=== PATIENT | female | born 1940 | race Caucasian/White ===

== ENCOUNTER 2017-03-04 18:48 | Emergency (ER) | payer MEDICARE, BC ==
[~2017-03-04] VITALS: Ht 152.4 cm; Wt 86.9 kg
--- NOTE | 2017-03-04 19:47 | Emergency Room Report ---
History of Present Illness Time Seen by 1913 Presenting Problem in Triage Pt arrived:Walked Presenting Problem:C/O BILATERAL LEG EDEMA FOR 2-3 WEEKS AND TODAY AFTER BATHING DEVELOPED AREA TO LEFT LOWER LEG WITH UNCONTROLLABLE BLEEDING FROM ? VARICOSE VEIN Onset of symptoms date/time:/ or onset unknown for:MEDICAL HX UNKNOWN Treatment Prior to Arrival: [employer] Provided by: Sepsis Risk Assessment: Temp: 97.5 B/P: 191/88 MAP: 122 Pulse: 86 Resp: 20 Recent fever? N Clinical Suspician of Infection? N Mental Status: 1 - Regular (Normal Baseline) Sepsis Risk:Low Sepsis Risk Have you (or family members/close friends) recently traveled outside the [place]? N If Yes, where/when: Have you had exposure to infectious disease within the past month? N TB? Other? Specify: She complains of bilateral lower extremity edema for the past 2-3 weeks which is new for her and then when she was standing today she noted blood started squirting from her LEFT lower extremity. Currently wrapped in a bandage. She denies any shortness of breath fever chills she denies any chest pain abdominal pain she states her legs simply gotten swollen gradually progressively worse over the past 3 weeks that she now has some achiness moderate in severity in both lower legs, patient. She states her bleeding is coming from up in all site in the LEFT lower extremity ALLERGIES Coded Allergies: No Known Allergies (03/04/17) Home Medications Reported Medications Simvastatin 20 MG PO DAILY #30 Lisinopril 20 MG PO DAILY #30 Verapamil Hcl (Verapamil ER) 360 MG PO DAILY #45 Atorvastatin Calcium 20 MG PO BEDTIME #30 ([facility], [place]) History Medical History General CAD? No Angina: No [place]: No Hypertension? Yes Hyperlipidemia? No CHF? No DVT? No PE? No COPD? No Asthma? No Anemia? No GERD? No Gastric ulcers? No GI Bleed? No Hernia? No Thyroid Problems? Yes Hypothyroidism? Yes CVA? No Seizures? No Diabetes? No Renal Insuffiency? No End Stage Renal Disease? No UTI? No Stones? No BPH? No GB Disease: No Nephritic Syndrome? No Asplenia? No Hepatitis? No Sickle Cell Disease? No Arthritis? Yes Migraines? No Cataracts? No Glaucoma? No MRSA? No HIV? No TB? No Anxiety? No Depression? No Cancer? No Immunization Hx DT/Tetanus 5-10 Years Ago Surgical Hx Previous Surgery?Y SARAH BLADDER TUCK Family History Family Hx Diabetes No CAD No Hypertension Yes Hyperlipidemia No Cancer No TB No Social History Smoking Hx Smoker: Never Smoker Tobacco: No Alcohol Alcohol: No ([place] Byrd MD) Review of Systems All Other Systems Reviewed and Negative ([place] Byrd MD) Physical Exam Vital Signs Vital Signs Date Time Temp Pulse Resp B/P Pulse O2 O2 Flow FiO2 Ox Delivery Rate 03/04 1912 97.5 86 20 191/88 97 General Appearance: Nontoxic Head: Normocephalic, without obvious abnormality, atraumatic. Eyes: conjunctiva/corneas clear ENT: Mucous membranes moist. Neck: No jugular venous distention. Cardiac: regular rate and rhythm Lungs: Clear to auscultation bilaterally Abdomen: Nontender, Nondistended, positive bowel sounds, no rebound : No CVA tenderness Extremities: +2 Bilateral lower extremity edema Bilateral calf tenderness On the LEFT lower extremity there is a pinhole bleeding site on a varicose vein. Musculoskeletal: No chest wall tenderness Skin: No rashes or lesions to exposed skin. Neurologic: Alert. No gross focal deficits Psychiatric: Normal affect ([place] Byrd MD) General Appearance normal appearance Respiratory Status No: respiratory distress. Cardiovascular normal exam Neurologic alert ([place] Byrd MD) Medical Decision Making LABS/Meds/Orders Pt receiving controlled substance in ED? No Results/Orders Laboratory Tests 03/04/171948: Sodium 129 L, Potassium 4.0, Chloride 100, Carbon Dioxide 27, BUN 29 H, Creatinine 1.1 H, Estimated Creat Clear 62, Estimated GFR (MDRD) 49 L, Glucose 88, Calcium 9.4, Total Bilirubin 0.5, AST 33, ALT 36, Alkaline Phosphatase 92, Troponin I < 0.02, B-Natriuretic Peptide 107 H, Total Protein 7.5, Albumin 3.6, Globulin 3.9 H, Albumin/Globulin Ratio 0.9 L, PT 10.7, INR 0.99, APTT 25.3, D- Dimer 912 *H, WBC 9.6, RBC 4.56, Hgb 14.2, Hct 42.2, MCV 92.5, RDW 13.9, Plt Count 290, MPV 7.8, Gran % 38.7, Gran # 3.7, Lymphocytes % 46.9, Monocytes % 6.6 , Eosinophils % 6.7, Basophils % 1.0, Lymphocytes # 4.5, Monocytes # 0.6, Eosinophils # 0.7 H, Basophils # 0.1, PUBS MCHC 33.5, MCH 31.0 Current Medication Orders Sig/Chilo Start time Last Medication Dose Route Stop Time Status Admin Diphtheria/Pertussis/ 0.5 ML ONCE ONE 03/04 2015 DC 03/04 Tetanus Vacc IM 03/04 Furosemide 20 MG ONCE ONE 03/04 2000 DC 03/04 IV 03/04 Tetanus/Diphtheria 0.5 ML ONCE ONE 03/04 2000 CAN Toxoids Adsorbed IM 03/04 2001 Diphtheria/Pertussis/ 0 .STK-MED ONE 03/04 1955 DC Tetanus Vacc IM Furosemide 0 .STK-MED ONE 03/04 1954 DC .ROUTE Lidocaine/Epinephrine 0 .STK-MED ONE 03/04 1934 DC .ROUTE Orders Procedure Date/time Status TROPONIN I 03/04 1950 Complete PARTIAL THROMBOPLASTIN TIME 03/04 1950 Complete PROTHROMBIN TIME 03/04 1950 Complete D-DIMER 03/04 1950 Complete CBC WITH AUTO DIFF 03/04 1950 Complete CHEM 12 PROFILE 03/04 1950 Complete BRAIN NATRIURETIC PEPTIDE 03/04 1950 Complete Procedures Laceration/Wound Repair Laceration/Wound Repair Risks/benefits discussed with pt/guardian? Yes Tetanus status not up to date Wound Location lower leg Wound Length (cm) 0.1 Wound's Depth, Shape superficial Wound Explored clean Risk of retained FB explained to pt/guardian? No Wound Prep Betadine Anesthesia Lidocaine w/Epi Volume Anesthetic (ccs) 1 Wound Debrided none Wound Repaired With sutures Suture Size/Type 4:0 Layer Closure No Total Number Sutures 1 (figure 8 suture) Sterile Dressing Applied Yes Splint Applied No Sling Applied No ([place] Byrd MD) Departure Departure Time of Disposition 1945 Condition STABLE ED Critical Care Critical Care No ([place] Byrd MD) Departure Disposition DC Home or Self Care(routine) Clinical Impression Primary Impression: Bilateral lower extremity edema Secondary Impressions: Elevated d-dimer, Renal insufficiency, Varicose vein of leg Referrals Eloise Montemayor MD (Family) discussed with dr navarrete Patient Instructions DI for Peripheral Edema -- Bilateral Additional Instructions call pcp in am and will do u/s of lower ext in am Discharge Counseling Counseled pt/family regarding diagnosis, test results, medications/RX, follow up needs (Linda Murphy MD) at 1955 at 2105
[2017-03-04 19:59] LABS: HEMOGLOBIN 14.2 g/dL (12.2-16.2); LYMPH # 4.5 K/mm3 (0.7-4.5); LYMPH % 46.9 % (10-50.0)
[2017-03-04 20:12] LABS: BUN 29 mg/dL (7-18)
[2017-03-04 20:20] LABS: GFR (ESTIMATED) 49 ML/MIN (59-)
[2017-03-04 21:26] VITALS: BP 191/88
--- OUTSIDE RECORDS SUMMARY | 2017-03-16 16:45 | External Medical Summary Rpt ---
Author Author [employer], [employer] Address Unknown Phone Unavailable Results Fibrin D-dimer FEU [Mass/volume] in Platelet poor plasma Observa Value Referen Units Interpr Notes Date tion ce etation Range IS PATIENT ON ANTICOAGULANTS? N Fibrin 0 - 400 ng/mL High Sep 29 D-dimer alert NOTIFICAT 2017 7:49 FEU ION PM [Mass/vol RESULT ume] in The Platelet D-Dimer poor values plasma are presented in units of mass(ng/m L) ofD-Dimer units(DDU ).This test has been FDA approved as an aid in the assessmen tand evaluatio n of suspected DIC, and thromboem bolic eventsinc luding PE and DVT. However, it does not have approvalf or cut-off values for the exclusion of these condition s. INR in Blood by Coagulation assay Observa Value Referen Units Interpr Notes Date tion ce etation Range IS PATIENT ON ANTICOAGULANTS? N INR in 0.9 - 1.1 No Normal INDICATIO Sep 29 Blood by informati N 2016 7:49 Coagulati on in PM on assay source INR data RANGETHER APY FOR DVT, PE, ATRIAL FIB; 2.0 - 3.0PROPHY LAXIS FOR VTETHERAP Y FOR MECHANICA L HEART 2.5 - 3.5VALVE; PREVENTIO N OF SYSTEMICE MBOLISM SECONDARY TO AMI Prothromb 9.4 - SECONDS Normal No Sep 29 in time 11.8 informati 2017 7:49 (PT) in on in PM Platelet source poor data plasma by Coagulati on assay Activated partial thrombplastin time (aPTT) in Platelet poor plasma by Coagulation assay Observa Value Referen Units Interpr Notes Date tion ce etation Range IS PATIENT ON ANTICOAGULANTS? N Activated 23.6 - SECONDS Normal No Sep 29 partial 34.0 informati 2017 7:49 thrombpla on in PM stin time source (aPTT) data in Platelet poor plasma by Coagulati on assay CBC W Auto Differential panel in Blood Observa Value Referen Units Interpr Notes Date tion ce etation Range Basophils 0 - 0.2 K/MM3 Normal No Sep 29 informati 2017 7:49 [#/volume on in PM ] in source Blood by data Automated count Basophils 0.1 - 2.0 % Normal No Sep 29 /100 informati 2017 7:49 leukocyte on in PM s in source Blood by data Automated count Eosinophi 0.0 - 0.4 K/mm3 High No Sep 29 ls informati 2016 7:49 [#/volume on in PM ] in source Blood by data Automated count Eosinophi 0.1 - % Normal No Sep 29 ls/100 12.0 informati 2017 7:49 leukocyte on in PM s in source Blood by data Automated count Granulocy 1.8 - 7.8 K/mm3 Normal No Sep 29 calvin informati 2016 7:49 [#/volume on in PM ] in source Blood by data Automated count Granulocy 37.0 - % Normal No Sep 29 calvin/100 80.0 informati 2016 7:49 leukocyte on in PM s in source Blood by data Automated count Hematocri 37.0 - % Normal No Sep 29 t [Volume 47.0 informati 2017 7:49 on in PM Fraction] source of Blood data Hemoglobi 12.2 - g/dL Normal No Sep 29 n 16.2 informati 2017 7:49 [Mass/vol on in PM ume] in source Blood data Lymphocyt 0.7 - 4.5 K/mm3 Normal No Sep 29 es informati 2017 7:49 [#/volume on in PM ] in source Unspecifi data ed specimen by Automated count Lymphocyt 10 - 50.0 % Normal No Sep 29 es informati 2017 7:49 [#/volume on in PM ] in source Unspecifi data ed specimen by Automated count Erythrocy 27 - 31.2 pg Normal No Sep 29 te mean informati 2017 7:49 corpuscul on in PM ar source hemoglobi data n [Entitic mass] Erythrocy 31.8 - g/dl Normal No Sep 29 te mean 35.4 informati 2017 7:49 corpuscul on in PM ar source hemoglobi data n concentra tion [Mass/vol ume] by Automated count Erythrocy 82.2 - fl Normal No Sep 29 te mean 97.8 informati 2016 7:49 corpuscul on in PM ar volume source [Entitic data volume] by Automated count Monocytes 0.1 - 1.0 K/mm3 Normal No Sep 29 informati 2016 7:49 [#/volume on in PM ] in source Blood by data Automated count Monocytes 1.7 - 9.3 % Normal No Sep 29 /100 informati 2016 7:49 leukocyte on in PM s in source Blood by data Automated count Platelet 7.4 - fl Normal No Sep 29 mean 10.4 informati 2016 7:49 volume on in PM [Entitic source volume] data in Blood by Automated count Platelets 142 - 424 K/mm3 Normal No Sep 29 informati 2016 7:49 [#/volume on in PM ] in source Blood data Erythrocy 4.2 - 5.4 M/mm3 Normal No Sep 29 calvin informati 2016 7:49 [#/volume on in PM ] in source Amniotic data fluid Erythrocy 11.5 - % Normal No Sep 29 te 17.5 informati 2016 7:49 distribut on in PM ion width source [Entitic data volume] by Automated count Leukocyte 4.8 - K/MM3 Normal No Sep 29 s 10.8 informati 2016 7:49 [#/volume on in PM ] in source Blood data
--- OUTSIDE RECORDS SUMMARY | 2017-03-16 16:45 | External Medical Summary Rpt ---
Author Author , MARIA TERESA KERNS Address Unknown Phone [email or web address] Immunization Name Date Rout CVX Reac Dose Comm Prov Is Faci e tion ent ider Refu lity Give sed n Infl 10-0 Intr 135 0.5 Hist D049 No D049 uenz 6-20 amus mL oric 01 01 a, 17 cula al High r Info rmat Dose ion - Sour ce Unsp ecif ied
--- OUTSIDE RECORDS SUMMARY | 2017-03-16 16:45 | External Medical Summary Rpt | CCD ---
Author Author [employer] Address Unknown Phone Unavailable Purpose Continuity of Care Document - through 2016
--- OUTSIDE RECORDS SUMMARY | 2017-03-16 16:45 | External Medical Summary Rpt ---
Author Author , MARIA TERESA KERNS Address Unknown Phone [email or web address] Immunization Name Date Rout CVX Reac Dose Comm Prov Is Faci e tion ent ider Refu lity Give sed n Infl 10-0 Intr 135 0.5 Hist D049 No D049 uenz 6-20 amus mL oric 01 01 a, 17 cula al High r Info rmat Dose ion - Sour ce Unsp ecif ied
--- OUTSIDE RECORDS SUMMARY | 2017-03-16 16:45 | External Medical Summary Rpt ---
Author Author MARIA TERESA Address Unknown Phone maria Purpose Continuity of Care Document - 03-04-2017 through 2016
== END 2017-03-04 21:29 | disposition home or self-care (01) ==
LOC: ER 18:48
PROVIDERS: Emergency Medicine
PROC: 0HQLXZZ Repair Left Lower Leg Skin, External Approach (ICD-10-PCS; principal; 2017-03-04)
DX: I83.892 Varicose veins of left lower extremity with other complications (principal); N28.9 Disorder of kidney and ureter, unspecified; I10 Essential (primary) hypertension; E03.9 Hypothyroidism, unspecified; Z23 Encounter for immunization; R06.02 Shortness of breath; Z51.81 Encounter for therapeutic drug level monitoring

== ENCOUNTER → 2017-03-05 | Outpatient (CLI) | payer MEDICARE, BC ==
--- NOTE | 2017-03-05 16:16 | CARDIOVASCULAR REPORT ---
"Venous Exam IMPRESSIONS No evidence of deep or superficial vein thrombosis involving the right lower extremity and left lower extremity History: Bilateral lower extremity pain. Swelling of both lower extremities. Varicose veins of the left lower extremity. Risk factors: Hypertension. Obese. Patient states she's noticed swelling in both legs for the last 3 weeks. She received a Lovenox injection in the emergency department 03/04/17. She denies any trauma. Complete lower extremity venous duplex evaluation. Doppler flow study including spectral analysis, color and petersen scale imaging. Location: Vascular laboratory. Patient status: Outpatient. Tables: Venous flow and imaging: + +-------+ + |Location |Overall|Flow properties | + +-------+ + |Right common femoral |Patent |Normal phasicity; spontaneous; | | | |normal augmentation; compressible| + +-------+ + |Right saphenofemoral junction|Patent |Compressible | + +-------+ + |Right profunda femoral |Patent |Compressible | + +-------+ + |Right femoral |Patent |Normal phasicity; spontaneous; | | | |normal augmentation; | | | |compressible; no reflux | + +-------+ + |Right greater saphenous |Patent |Normal phasicity; spontaneous; | | | |normal augmentation; compressible| + +-------+ + |Right popliteal |Patent |Normal phasicity; spontaneous; | | | |normal augmentation; compressible| + +-------+ + |Right posterior tibial |Patent |Compressible | + +-------+ + |Right peroneal |Patent |Compressible | + +-------+ + |Right gastrocnemius |Patent |Compressible | + +-------+ + |Right soleal |Patent |Compressible | + +-------+ + |Left common femoral |Patent |Normal phasicity; spontaneous; | | | |normal augmentation; compressible| + +-------+ + |Left saphenofemoral junction |Patent |Compressible | + +-------+ + |Left profunda femoral |Patent |Compressible | + +-------+ + |Left femoral |Patent |Normal phasicity; spontaneous; | | | |normal augmentation; compressible| + +-------+ + |Left greater saphenous |Patent |Normal phasicity; spontaneous; | | | |normal augmentation; compressible| + +-------+ + |Left popliteal |Patent |Normal phasicity; spontaneous; | | | |normal augmentation; compressible| + +-------+ + |Left posterior tibial |Patent |Compressible | + +-------+ + |Left peroneal |Patent |Compressible | + +-------+ + |Left gastrocnemius |Patent |Compressible | + +-------+ + |Left soleal |Patent |Compressible | + +-------+ + (Report amended ) Electronically signed by: Giacomo Peoples [id number]"
== END ==
LOC: RT 15:16
DX: R22.42 Localized swelling, mass and lump, left lower limb (principal); R79.1 Abnormal coagulation profile

== ENCOUNTER → 2017-05-13 | Outpatient (CLI) | payer MEDICARE, BC ==
[~2017-05-13] MED LIST: ATORVASTATIN CA20 M1 PO; LISINOPRIL20 MG PO; SIMVASTATIN20 MG PO; VERAPAMIL HCL240 M1 PO
--- NOTE | 2017-05-16 09:33 | RADIOLOGY REPORT PS360 ---
DIG MAMM-SCREEN EDWARD W/CAD ORDERING PHYSICIAN : Lionel Rivera MD PATIENT AGE: 77 years GENDER: Female COMPARISON: May 2012, December 2012, December 2013 and 2014 HISTORY:Hormone cream.. No new complaints.. Noncontributory family history TECHNIQUE: Std CC & MLO images were obtained. R2 CAD reviewed. FINDINGS: Low-density breast bilaterally. No suspicious new lesions. No dominant mass nor suspicious calcifications. No significant architectural distortion RIGHT BREAST: Stable small nodular density towards the deep axillary tail compatible with small intramammary node. Not of concern. Can be followed LEFT BREAST: Areas of minimal density lateral left breast similar to previous studies can be followed. Slight different MLO projection evident with overall similar appearance seen back to/2011 & 2012 exams IMPRESSION: Stable bilateral mammogram; with no significant new findings. follow-up in one year recommended. BI-RADS CATEGORY: 2_Benign RECOMMENDED FOLLOWUP: 12M 12 MONTH FOLLOW-UP (A letter has been sent to the patient regarding results of the study.)
== END ==
LOC: RAD 09:30
DX: Z12.31 Encounter for screening mammogram for malignant neoplasm of breast (principal)
CPT/HCPCS: G0202

== ENCOUNTER → 2017-05-21 | Outpatient (CLI) | payer MEDICARE, BC ==
[2017-05-21 11:19] LABS: BUN 24 mg/dL (7-18)
[2017-05-21 11:38] LABS: GFR (ESTIMATED) 70 ML/MIN (59-)
== END ==
LOC: LAB 09:20
PROVIDERS: Family Medicine
DX: I10 Essential (primary) hypertension (principal); E78.5 Hyperlipidemia, unspecified; E03.9 Hypothyroidism, unspecified